=== PATIENT | female | born 1965 | race Hispanic/Latino ===

== ENCOUNTER 2018-12-06 07:18 | Day surgery (SDC) | payer MEDICARE ==
--- NOTE | 2018-12-06 08:36 | Anesthesia Consultation ---
Anesthesia Consult and Med Hx Date of service: 12/06/18 - Airway Anesthetic Teeth Evaluation: Dentures (upper), Partials (bottom) ROM Head & Neck: Adequate Mental/Hyoid Distance: Adequate Mallampati Class: Class III Intubation Access Assessment: Possibly Difficult - Pre-Operative Health Status ASA Pre-Surgery Classification: ASA3 Proposed Anesthetic Plan: MAC - Pulmonary Hx Smoking: Yes (1 pack/day x 35 years, quit 6 weeks ago) COPD: Yes (uses Alburerol prn) Hx Sleep Apnea: Yes (undiagnosed) - Cardiovascular System Hx Hypertension: Yes Hx Pacemaker: Yes Hx Internal Defibrillator: Yes Hx Valvular Heart Disease: Yes (h/o tricuspid valve replacement) - Other Systems Hx Obesity: Yes (BMI 37.3)
--- NOTE | 2018-12-06 08:41 | Anesthesia Day of Surgery ---
Anesthesia Day of Surgery - Day of Surgery Patient Examined: Yes Patient H&P Reviewed: Yes Patient is NPO: Yes Beta Blockers: Yes
[2018-12-06] MEDS ORDERED: BENZOCAINE 20% TOP SPRAY 0.5 ML UNIT DOSE MM ONE (08:50)
[2018-12-06] MEDS ORDERED: SODIUM CHLORIDE 0.9% 500 ML 500 ML ONE (08:50)
[2018-12-06] MEDS ORDERED: SODIUM CHLORIDE 0.9% 500 ML 500 ML IV SCH (09:00)
[2018-12-06] MEDS ORDERED: BENZOCAINE 20% TOP SPRAY 0.5 ML UNIT DOSE MM NR (09:00)
[2018-12-06 09:01] LABS: Basophils # (Auto) 0.1 K/mm3 (0.0-0.1); Basophils % (Auto) 1.3 % (0.0-1.8); Eosinophils # (Auto) 0.1 K/mm3 (0.0-0.4); Eosinophils % (Auto) 1.4 % (0.0-4.3); Hematocrit 40.7 % (30.3-42.9); Hemoglobin 14.3 gm/dl (10.1-14.3); Lymphocytes # (Auto) 2.9 K/mm3 (1.2-5.4); Lymphocytes % (Auto) 29.1 % (13.4-35.0); Mean Corpuscular HGB Conc 35 % (30-34); Mean Corpuscular Volume 104 fl (79-97); Monocytes # (Auto) 0.6 K/mm3 (0.0-0.8); Monocytes % (Auto) 6.4 % (0.0-7.3); Platelet Count 199 K/mm3 (140-440); Red Blood Count 3.92 M/mm3 (3.65-5.03); Red Cell Distribution Width 13.9 % (13.2-15.2)
[2018-12-06] MEDS ORDERED: PROPOFOL 200 MG/20 ML VIAL IV ONE ×2 (09:20)
[2018-12-06] MEDS ORDERED: LIDOCAINE MPF (2%) 20 MG/1 ML VIAL 5 ML ONE (09:21)
[2018-12-06 10:27] LABS: INR 0.96 (0.87-1.13)
[2018-12-06 10:28] LABS: Partial Thromboplastin Time 29.5 Sec. (24.2-36.6)
[2018-12-06 12:32] VITALS: BP 127/73
--- NOTE | 2018-12-06 15:01 | Post Anesthesia Evaluation ---
- Post Anesthesia Evaluation Patient Participated: Yes Airway Patent: Yes Stable Respiratory Function: Yes Nausea/Vomiting: No Temp > 96.8F: Yes Pain Manageable: Yes Adequeate Hydration: Yes Anesthesia Complications: No Block Receding Appropriately: Not Applicable Patient on Ventilator: No
== END 2018-12-06 13:00 | disposition home or self-care (01) ==
LOC: CATHLABREC 07:18 → EDSTATUS 10:30 → CATHLABREC 13:00
PROVIDERS: ATTEND Internal Medicine Cardiovascular Disease
DX: I42.9 Cardiomyopathy, unspecified (principal); I08.1 Rheumatic disorders of both mitral and tricuspid valves; I10 Essential (primary) hypertension; J44.9 Chronic obstructive pulmonary disease, unspecified; G47.30 Sleep apnea, unspecified; E66.9 Obesity, unspecified; G62.9 Polyneuropathy, unspecified; M19.90 Unspecified osteoarthritis, unspecified site; F32.9 Major depressive disorder, single episode, unspecified; F41.9 Anxiety disorder, unspecified; Z79.82 Long term (current) use of aspirin; Z79.899 Other long term (current) drug therapy; Z87.891 Personal history of nicotine dependence; Z98.49 Cataract extraction status, unspecified eye; Z95.0 Presence of cardiac pacemaker; Z95.2 Presence of prosthetic heart valve; Z68.37 Body mass index [BMI] 37.0-37.9, adult; Z98.890 Other specified postprocedural states; Z88.8 Allergy status to other drugs, medicaments and biological substances; Z79.01 Long term (current) use of anticoagulants
CPT/HCPCS: 36415; 85025; 85610; 85730; 93312; 93320; 93325; J2704; J7040

== ENCOUNTER 2018-12-24 07:28 | Day surgery (SDC) | payer MEDICARE ==
[2018-12-24] MEDS ORDERED: ASPIRIN EC 325 MG TAB PO ONE (07:44)
[2018-12-24] MEDS: SODIUM CHLORIDE 0.9% 500 ML 500 ML IV SCH ×2 (08:00→14:02)
[2018-12-24 08:16] LABS: Basophils # (Auto) 0.1 K/mm3 (0.0-0.1); Basophils % (Auto) 0.7 % (0.0-1.8); Eosinophils # (Auto) 0.1 K/mm3 (0.0-0.4); Eosinophils % (Auto) 1.6 % (0.0-4.3); Hematocrit 40.6 % (30.3-42.9); Hemoglobin 13.9 gm/dl (10.1-14.3); Lymphocytes # (Auto) 2.1 K/mm3 (1.2-5.4); Lymphocytes % (Auto) 27.3 % (13.4-35.0); Mean Corpuscular HGB Conc 34 % (30-34); Mean Corpuscular Volume 106 fl (79-97); Monocytes # (Auto) 0.5 K/mm3 (0.0-0.8); Monocytes % (Auto) 6.1 % (0.0-7.3); Platelet Count 173 K/mm3 (140-440); Red Blood Count 3.85 M/mm3 (3.65-5.03); Red Cell Distribution Width 14.2 % (13.2-15.2)
[2018-12-24 08:26] LABS: INR 0.97 (0.87-1.13)
[2018-12-24 08:32] LABS: BUN/Creatinine Ratio 20; Blood Urea Nitrogen 14 mg/dL (7-17); Calcium 9.3 mg/dL (8.4-10.2); Hemolysis Index 58
[2018-12-24] MEDS ORDERED: ALUM-MAG HYDROXIDE-SIMETHICONE 200-200-20MG/5ML ORAL LIQD 30 ML ONE (10:14)
[2018-12-24] MEDS ORDERED: ALUM-MAG HYDROXIDE-SIMETHICONE 200-200-20MG/5ML ORAL LIQD 30 ML PO PRN (10:15)
[2018-12-24] MEDS ORDERED: HEPARIN/NS 5000 UNIT/500ML 1,000 ML IR ONE (10:41)
[2018-12-24] MEDS ORDERED: HEPARIN 10,000 UNITS/10 ML VIAL ONE (10:41)
[2018-12-24] MEDS ORDERED: LIDOCAINE (2%) 20 MG/1 ML VIAL 20 ML MDV INFILTRATI ONE (10:42)
[2018-12-24] MEDS ORDERED: fentaNYL 100 MCG/2 ML INJ ONE (10:42)
[2018-12-24] MEDS ORDERED: MIDAZOLAM 2 MG/2 ML INJ ONE (10:42)
[2018-12-24] MEDS ORDERED: traMADol 50 MG TAB PO PRN (12:12)
--- NOTE | 2018-12-24 12:15 | Discharge Summary ---
Short Stay Discharge Plan Activity: advance as tolerated Weight Bearing Status: Partial Weight Bearing Diet: low fat, low cholesterol, low salt Wound: keep clean and dry Special Instructions: no heavy lifting (3 days) Follow up with: LEONILA TRAN MD [Primary Care Provider] - 7 Days FEDERICA MINOR MD [Staff Physician] - 7 Days
--- NOTE | 2018-12-24 12:31 | Cardiac Catherization Report ---
REASON FOR PROCEDURE: The patient is a 53-year-old woman with a history of tricuspid valve repair, nonischemic cardiomyopathy, internal cardiac defibrillator in situ. Recently, she complained of progressive exertional dyspnea and fatigue. An echocardiogram shows moderate to severe tricuspid regurgitation. She is referred for right and left heart catheterization for further assessment of exertional dyspnea. PROCEDURES: 1. Right heart catheterization. 2. Left heart catheterization. 3. Selective left and right coronary angiography. 4. Left ventricle angiography. 5. Sedation time start 11:28 and 11:54. PROCEDURES: The patient was prepped and draped in a sterile fashion after informed consent. The right femoral artery and vein were both entered using the Seldinger technique. A 6-Ecuadorean sheath was placed in the artery and an 8-[place] sheath in the vein. A [place]-Stella catheter was then advanced to the pulmonary artery position. Cardiac output was measured using the thermodilution method. A pigtail catheter was advanced into the left ventricle. Simultaneous left and right heart filling pressures were then recorded. The [place]-Stella catheter was pulled back and right heart pressures recorded on pullback. We then performed left ventricle angiography, following which the pigtail catheter was withdrawn across the aortic valve and transaortic valve pressure was recorded. Selective left and right coronary angiography was then performed using #4 left Kimberly and #4 right Kimebrly catheters. The catheters were then removed, sheath removed, hemostasis over the arterial site using an Angio-Seal device and over the venous site using manual compression. The patient was then returned to the postprocedure unit in stable condition. There were no complications. FINDINGS: HEMODYNAMICS: Mean right atrial pressure was 20-25. Right ventricular pressure was 50/20-25. Pulmonary artery pressure was 50/30. The mean pulmonary artery wedge pressure was 20-25. Left ventricular end-diastolic pressure was 20-25. Ascending aortic pressure was 164/103. There was no significant pressure gradient on pullback across the aortic valve. Cardiac output was 6.26 liters per minute. CORONARY ANGIOGRAPHY: The left main coronary artery was angiographically normal. The left anterior descending artery and its diagonal branches were angiographically normal. The circumflex artery was dominant. This vessel and its obtuse marginal branches were angiographically normal. The right coronary artery was small, nondominant and also angiographically normal. There was normal left ventricular systolic function, ejection fraction 60-65%. CONCLUSION: 1. Elevated right and left heart filling pressures. 2. Complete equalization of right and left heart filling pressures with mean right atrial, right ventricular end-diastolic, pulmonary artery wedge and left ventricular end-diastolic pressures identical at 20-25 mmHg. 3. Moderate pulmonary hypertension with pulmonary artery systolic pressure of 50 mmHg. 4. Angiographically normal coronary arteries. Left circumflex dominant system. 5. Normal left ventricular systolic function, ejection fraction 60-65%. RECOMMENDATION: The patient will be referred for further evaluation for constrictive pericardial disease, in the setting of prior cardiac surgery, exertional dyspnea and equalization of right and left heart filling pressures as demonstrated. JOB# [id number] YAZMIN/NTS
[2018-12-24] MEDS ORDERED: SODIUM CHLORIDE 0.9% 1000 ML 1,000 ML IV SCH (13:00)
[2018-12-24 16:18] VITALS: BP 126/72
== END 2018-12-24 16:20 | disposition home or self-care (01) ==
LOC: CATHLABREC 07:28
PROVIDERS: ATTEND Internal Medicine Cardiovascular Disease
DX: I42.8 Other cardiomyopathies (principal); I07.8 Other rheumatic tricuspid valve diseases; R53.83 Other fatigue; R06.09 Other forms of dyspnea; I27.20 Pulmonary hypertension, unspecified; G62.9 Polyneuropathy, unspecified; I10 Essential (primary) hypertension; J44.9 Chronic obstructive pulmonary disease, unspecified; G47.30 Sleep apnea, unspecified; K21.9 Gastro-esophageal reflux disease without esophagitis; Z95.0 Presence of cardiac pacemaker; Z79.899 Other long term (current) drug therapy; Z79.82 Long term (current) use of aspirin; Z87.891 Personal history of nicotine dependence; Z98.890 Other specified postprocedural states; Z98.49 Cataract extraction status, unspecified eye; Z88.8 Allergy status to other drugs, medicaments and biological substances
CPT/HCPCS: 36415; 80048; 85025; 85610; 85730; 93005; 93010; 93460; 99156; 99157; C1760; C1894; J1644; J2250; J3010; J7040; Q9967